=== PATIENT | female | born 1965 | race Caucasian/White ===

== ENCOUNTER 2023-09-12 01:48 | Emergency (ER) | payer OTHER ==
[2023-09-12] MEDS ORDERED: Dexamethasone 10 MG/ML VIAL ONE (02:19)
== END 2023-09-12 02:39 | disposition home or self-care (01) ==
LOC: CSHERS 01:48
DX: T78.40XA Allergy, unspecified, initial encounter (principal); I10 Essential (primary) hypertension; E78.5 Hyperlipidemia, unspecified; G43.909 Migraine, unspecified, not intractable, without status migrainosus; Z79.899 Other long term (current) drug therapy
CPT/HCPCS: 96372; 99283; J1100